=== PATIENT | male | born 1950 | race Two or more races ===

== ENCOUNTER 2022-01-05 19:01 | Emergency (ER) | payer SELFPAY ==
[~2022-01-05] VITALS: Ht 172.7 cm; Wt 104.8 kg
[2022-01-05 19:02] VITALS: BP 173/88
== END 2022-01-05 19:25 | disposition left against medical advice (07) ==
LOC: M ED 19:01
DX: Z53.21 Procedure and treatment not carried out due to patient leaving prior to being seen by health care provider (principal)